=== PATIENT | female | born 1950 | race Caucasian/White ===

== ENCOUNTER 2017-05-19 10:05 | Day surgery (SDC) | payer MEDICARE, BC ==
[~2017-05-19] VITALS: Ht 156.7 cm; Wt 75.9 kg
[2017-05-19 10:54] LABS: BASOPHILS 0.3 % (0-2); EOSINOPHILS 1.4 % (0-7); HEMATOCRIT 41.4 % (36.0-48.0); HEMOGLOBIN 14.1 g/dL (12-16); IMMATURE GRANULOCYTES 0.3 % (0-5); MCH 30.5 pg (26.0-34.0); MCHC 34.1 g/dL (31.0-37.0); MCV 89.6 fL (80.0-100.0); MEAN PLATELET VOLUME 10.3 fL (7.4-10.4); MONOCYTES 4.5 % (2-11); NEUTROPHILS 65.5 % (40-80); PLATELET COUNT 243 10x3/uL (130-400); RBC 4.62 10x6/uL (4.00-5.40); RDW 13.5 % (11.5-14.5); WBC 11.9 10x3/uL (4.8-10.8)
[2017-05-19 11:06] LABS: ALBUMIN 3.9 g/dL (3.4-5.0); ANION GAP 13.6 mmol/L (8-16); BILIRUBIN - TOTAL 0.38 mg/dL (0.2-1.3); CALCIUM 9.2 mg/dL (8.5-10.1); CARBON DIOXIDE 28.3 mmol/L (21.0-32.0); CREATININE - SERUM 1.5 mg/dL (0.6-1.3); INR 1.09 (0.85-1.17); POTASSIUM - SERUM 3.9 mmol/L (3.5-5.1)
[2017-05-19 11:07] LABS: APTT 46.3 SECONDS (22.8-39.4)
[2017-05-19 11:58] VITALS: BP 116/70; Ht 156.7 cm; Wt 75.9 kg
[2017-05-19] MEDS ORDERED: ENBREL50 MG/ML SQ (12:06)
[2017-05-19] MEDS ORDERED: IBUPROFEN200 MG PO (12:07)
[2017-05-19] MEDS ORDERED: ZYLOPRIM100 MG PO (12:08)
[2017-05-19] MEDS ORDERED: LOVASTATIN20 MG PO (12:09)
[2017-05-19] MEDS ORDERED: KEPPRA1000 MG PO (12:09)
[2017-05-19] MEDS ORDERED: FOLIC ACID1 MG PO (12:10)
[2017-05-19] MEDS ORDERED: ROBAXIN-750750 MG PO (12:11)
[2017-05-19] MEDS ORDERED: DELZICOL400 M1 PO ×2 (12:11→12:12)
[2017-05-19] MEDS ORDERED: ZYPREXA2.5 MG PO (12:13)
--- NOTE | 2017-05-20 16:20 | OP ---
PATIENT NAME: BRITT BEASLEY MEDICAL RECORD: [id number] :50 [facility]ATION:[facility] ADMISSION DATE: SURGEON: VIRGIE CHESTER DO DATE OF OPERATION: 05/19/2017 PROCEDURE: Colonoscopy. INDICATIONS FOR PROCEDURE: Crohn disease and history of malignant tumor of colon status post partial colectomy, last colonoscopy date was 06/2014. MEDICATIONS: Propofol 250 mg IV per anesthesia. WITHDRAWAL TIME: 10 minutes. ESTIMATED BLOOD LOSS: None. COMPLICATIONS: None. FINDINGS: Informed consent was given. The patient was made comfortable with the above medication. After reaching an adequate level of sedation by slow IV push, the patient was placed on her left side. A digital rectal examination was performed and was normal. The endoscope was then advanced under direct visualization through the rectum to the terminal ileum. The scope was slowly withdrawn and mucosa was carefully examined. The prep quality was good. There were no polyps visualized on this examination. There was no evidence of active Crohn's disease involving the terminal ileum or the colon. There was mild diverticulosis noted in the descending and sigmoid colon without evidence of diverticulitis. Retroflexion was performed in the rectum with visualization of small nonbleeding internal hemorrhoids. The scope was withdrawn from the patient. The patient tolerated the procedure well and there were no complications. IMPRESSION: 1. Mild diverticulosis of the descending and sigmoid colon. 2. Small nonbleeding internal hemorrhoids. 3. Crohn's disease in remission. PLAN AND RECOMMENDATIONS: 1. Discharge home when recovery parameters are met. 2. Continue current diet. 3. Continue current medications. 4. Recall colonoscopy in 3 years for continued surveillance regarding the history of Crohn disease and a history of malignant tumor of the colon requiring partial colectomy. TRANSINT:[id number] Voice Confirmation ID: [id number] DOCUMENT ID: [id number] OPERATIVE REPORT [id number] BRITT BEASLEY VIRGIE CHESTER DO at 1620 CC: [id number] DICTATION DATE: 05/19/17 1338 TIRE BUFFER: 05/19/17 1840 [facility] 05/19/17 [place] [address]
== END 2017-05-19 14:25 | disposition home or self-care (01) ==
LOC: D.OPS 10:05
PROVIDERS: Anesthesiology
DX: K50.10 Crohn's disease of large intestine without complications (principal); K57.30 Diverticulosis of large intestine without perforation or abscess without bleeding; K64.8 Other hemorrhoids; Z85.038 Personal history of other malignant neoplasm of large intestine; Z90.49 Acquired absence of other specified parts of digestive tract; Z01.812 Encounter for preprocedural laboratory examination

== ENCOUNTER 2019-01-29 08:56 | Emergency (ER) | payer MEDICARE, BC ==
[~2019-01-29] VITALS: Ht 156.7 cm; Wt 65.0 kg
[~2019-01-29 08:56] MED LIST: DELZICOL400 M1 PO; ENBREL50 MG/ML SQ; FOLIC ACID1 MG PO; IBUPROFEN200 MG PO; KEPPRA1000 MG PO; LOVASTATIN20 MG PO; ROBAXIN-750750 MG PO; ZYLOPRIM100 MG PO; ZYPREXA2.5 MG PO
[2019-01-29 11:01] VITALS: Ht 156.7 cm; Wt 65.0 kg
[2019-01-29 11:40] LABS: BASOPHILS 0.3 % (0-2); EOSINOPHILS 1.1 % (0-7); HEMATOCRIT 39.8 % (36.0-48.0); HEMOGLOBIN 13.9 g/dL (12-16); IMMATURE GRANULOCYTES 0.4 % (0-5); LYMPHOCYTES 31.9 % (15-50); MCH 30.3 pg (26.0-34.0); MCHC 34.9 g/dL (31.0-37.0); MCV 86.7 fL (80.0-100.0); MONOCYTES 4.6 % (2-11); NEUTROPHILS 61.7 % (40-80); PLATELET COUNT 256 10x3/uL (130-400); RBC 4.59 10x6/uL (4.00-5.40); RDW 14.1 % (11.5-14.5); WBC 13.6 10x3/uL (4.8-10.8)
[2019-01-29 12:05] LABS: ALBUMIN 3.3 g/dL (3.4-5.0); ALKALINE PHOSPHATASE 94 U/L (46-116); ALT (SGPT) 17 U/L (10-68); BILIRUBIN - TOTAL 0.42 mg/dL (0.2-1.3); CALC OSMOLALITY 276 mosm/kg (275-300); CALCIUM 9.1 mg/dL (8.5-10.1); CARBON DIOXIDE 22.9 mmol/L (21.0-32.0); CHLORIDE - SERUM 102 mmol/L (98-107); CREATININE - SERUM 1.2 mg/dL (0.6-1.3); GLUCOSE 102 mg/dL (74-106); PROTEIN - SERUM 7.2 g/dL (6.4-8.2); SODIUM 137 mmol/L (136-145); UREA NITROGEN 20 mg/dL (7-18); eGFR NON AFRICAN AMERICAN 47 mL/min (90-120)
[2019-01-29 12:06] LABS: APPEARANCE CLEAR (CLEAR); BILIRUBIN NEGATIVE (NEGATIVE); COLOR YELLOW (YELLOW); GLUCOSE NEGATIVE (NEGATIVE); KETONE NEGATIVE (NEGATIVE); NITRITE NEGATIVE (NEGATIVE); PROTEIN NEGATIVE (NEGATIVE); SPECIFIC GRAVITY 1.015 (1.005-1.020); UROBILINOGEN NORMAL (NORMAL)
[2019-01-29 12:13] LABS: AMYLASE - SERUM 47 U/L (25-115); LIPASE 109 U/L (73-393); TROPONIN-I < 0.017 ng/mL (0.000-0.060)
[2019-01-29] MEDS ORDERED: REGLAN5 MG PO (12:31)
[2019-01-29 12:49] VITALS: BP 132/86
== END 2019-01-29 12:51 | disposition home or self-care (01) ==
LOC: D.CT 08:56 → D.ER 08:56 → D.CT 09:30 → EDSTATUS 09:30 → D.ER 12:51
PROVIDERS: Emergency Medicine
DX: R10.9 Unspecified abdominal pain (principal); K50.90 Crohn's disease, unspecified, without complications; K57.92 Diverticulitis of intestine, part unspecified, without perforation or abscess without bleeding; K56.699 Other intestinal obstruction unspecified as to partial versus complete obstruction